=== PATIENT | female | born 1995 | race Caucasian/White ===

== ENCOUNTER 2017-02-05 13:08 | Emergency (ER) | payer SELFPAY ==
--- NOTE | 2017-02-06 09:04 | NUR ---
Called and spoke with Esthela. States they just picked up her medications this morning. Deny need for medication assistance.
--- NOTE | 2017-02-11 08:15 | ER ---
ADMIT: 02/05/2017 RM/LOC: ER [facility] MR#: [id number] [address] [address] PARMJIT DAHL [address] [place] [address] Emergency Room Report SEX: F AGE: 21 : 1995 DATE: 02/05/2017 HISTORY OF PRESENT ILLNESS: A 21-year-old, brought in by mom to the emergency room with shortness of breath for 2 days. Continues in the ER. She has felt pretty bad since yesterday when she then developed fever and chills and a cough. She is afraid of coughing because if she coughs, her throat hurts, but she has also a sore throat. PAST MEDICAL HISTORY: Includes sinus infection. She had had kidney and ureter surgery, sinus infections. ALLERGIES: SHE IS ALLERGIC TO AUGMENTIN, HAS A CONTROL IMPLANT. MOM WANTS A NOTE FOR SCHOOL BY THE WAY. PHYSICAL EXAMINATION: VITAL SIGNS: Blood pressure 141/93, heart rate is 135, respirations 20, and temp is 102.8. GENERAL: Alert, moderately anxious. When she coughs, she thinks she is going to choke. NECK: Supple. RESPIRATION: Wheezes, tachycardic. SKIN: Good color. ABDOMEN: Nontender. EXTREMITIES: Well perfused. NEUROLOGIC: Oriented x4. Influenza A positive. CLINICAL IMPRESSION: Influenza A, bronchitis, cough, and fever. Given Phenergan and codeine. Use Chloraseptic or gargle with warm salt water for discomfort of the throat. Tamiflu as prescribed, start today. Prednisone for lung inflammation. Albuterol rescue inhaler. Tylenol or Motrin. Go home and rest. Activity as tolerated. CHINMAY Matthews / Manjit Rockwell MD / modl JOB #: [id number] CC: Manjit Rockwell MD, Attending Physician Landen Raman MD
== END 2017-02-05 14:30 | disposition home or self-care (01) ==
LOC: ER 13:08
DX: J10.1 Influenza due to other identified influenza virus with other respiratory manifestations (principal); Z88.1 Allergy status to other antibiotic agents

== ENCOUNTER 2017-02-09 09:50 | Emergency (ER) | payer SELFPAY ==
--- NOTE | 2017-02-18 06:57 | ER ---
ADMIT: 02/09/2017 RM/LOC: ER [facility] MR#: [id number] [address] PARMJIT DAHL [address] [place] [address] Emergency Room Report SEX: F AGE: 21 : 1995 DATE: 02/09/2017 ADDENDUM: This patient is brought into the ER because of concerns of continued cough. She is diagnosed with influenza. She is taking prednisone, Tamiflu, albuterol, and Phenergan cough syrup. She still continues to cough. On physical exam, her O2 saturation is 95% on room air, and her lungs sound clear. Her chest x-ray was normal. DIAGNOSIS: Influenza. We will have her continue with the medications as prescribed. Rest and increase fluids. CHINMAY Deras / Abelardo Villatoro MD / gregorio JOB #: [id number] CC: Abelardo Villatoro MD, Attending Physician Landen Raman MD
== END 2017-02-09 11:28 | disposition home or self-care (01) ==
LOC: ER 09:50
DX: J11.1 Influenza due to unidentified influenza virus with other respiratory manifestations (principal); Z88.1 Allergy status to other antibiotic agents